=== PATIENT | male | born 1950 | race Caucasian/White ===

== ENCOUNTER 2017-04-08 07:20 | Day surgery (SDC) | payer MEDICARE, OTHER ==
--- NOTE | 2017-04-02 12:48 | HISTORY AND PHYSICAL E ---
History and Physical NAME: PATRICIO HELMS : 1950 AGE: 67Y ADMITTED: 04/08/2017 ROOM: CHIEF COMPLAINT: Colon screening. HISTORY: The patient presented to us in 2011 for colon screening. PAST MEDICAL HISTORY: Coronary artery disease. PAST SURGICAL HISTORY: 1. Back surgery. 2. Colonoscopy back in year 1999. MEDICATIONS: 1. Effient. 2. Metoprolol. 3. Simvastatin. ALLERGIES: Negative. SOCIAL HISTORY: . Does not smoke. Drinks rarely. FAMILY HISTORY: Father had unknown cause and . REVIEW OF SYSTEMS: CARDIAC: Hypertension, coronary artery disease, cardiac cath and stent. ENDOCRINE: Thyroid disorder. GASTROINTESTINAL: Hemorrhoids. Colon screening. HEMATOLOGIC/ONCOLOGIC: Negative. MUSCULOSKELETAL: Back surgery. END OF DICTATION. DICTATING PHYSICIAN: ERIK VALDERRAMA M.D. [id number] PHY#: [id number] ID: [id number] JOB#: [id number] ACCT: [id number] cc:ERIK VALDERRAMA M.D. >
[2017-04-08] MEDS ORDERED: LIDOCAINE 2% JELLY 30 ML TUBE ONE (08:08)
[2017-04-08] MEDS ORDERED: MIDAZOLAM 2 MG/2 ML INJ ONE (08:09)
[2017-04-08] MEDS ORDERED: ONDANSETRON HCL INJ/PF 4 MG/2 ML SDV ONE (08:09)
[2017-04-08] MEDS ORDERED: GLYCOPYRROLATE INJ 0.4 MG/2 ML VIAL ONE (08:09)
[2017-04-08] MEDS ORDERED: NALOXONE HCL INJ/PF 0.4 MG/1 ML SDV ONE (08:09)
[2017-04-08] MEDS ORDERED: FLUMAZENIL INJ 0.5 MG/5 ML VIAL IV ONE (08:10)
[2017-04-08] MEDS ORDERED: GLUCAGON,HUMAN RECOMB 1 MG INJ ONE (08:10)
[2017-04-08] MEDS ORDERED: EPINEPHRINE INJ 1 MG/10 ML DISP.SYRIN ONE (08:10)
[2017-04-08] MEDS: FENTANYL CITRATE INJ/PF 100 MCG/2 ML AMPUL ONE ×2 (08:30→08:37)
[2017-04-08 10:11] VITALS: BP 122/82
--- NOTE | 2017-04-08 13:45 | DISCHARGE SUMMARY E ---
Discharge Summary NAME: PATRICIO HELMS : 1950 AGE: 67Y ADMITTED: 04/08/2017 DISCHARGED: 04/08/2017 SUMMARY: The patient is a 67-year-old male who presented to us regarding colon screening. Today's colon shows benign-looking diminutive rectal polyp and anal narrowing with sigmoid and descending colon diverticulosis. DISCHARGE PLAN: 1. Soft diet. 2. Hold aspirin for 3 days. 3. Awaiting biopsy results. 4. Consideration for follow-up colonoscopy in 3 years. 5. Follow-up office visit in the next few days. DICTATING PHYSICIAN: ERIK VALDERRAMA M.D. [id number] [id number] PHY#: [id number] ID: [id number] JOB#: [id number] ACCT: [id number] cc:DERRICK GARCIA M.D., MAHMOUD M.D. >
--- NOTE | 2017-04-08 13:53 | OPERATIVE REPORT E ---
Operative Report NAME: PATRICIO HELMS : 1950 AGE: 67Y DATE OF SURGERY: 04/08/2017 ROOM: PREOPERATIVE DIAGNOSIS: Colon screening. POSTOPERATIVE DIAGNOSES: 1. Diminutive polyp, rectum, 2 mm, close to the anal verge. 2. Nonspecific anal narrowing. 3. Sigmoid diverticulosis. PROCEDURE: Colonoscopy. SURGEON: ERIK VALDERRAMA M.D. ANESTHESIA: Versed 2 mg and Fentanyl 100 mcg. TISSUE REMOVED OR ALTERED: Rectal biopsy. PROCEDURE: Rectal exam shows anal narrowing, etiology undetermined. Rectum shows scarring and 2-mm rectal polyp, biopsy obtained. Sigmoid and descending colon diverticulosis. Transverse colon normal. There is an area of inking marker from previous colonoscopy. I inspected the area and I did not see any polyps. Ascending colon normal. Cecum normal. Adequate prep. Scope withdrawn cecum, ascending, transverse, descending, sigmoid all the way to the rectum. CONCLUSIONS: Benign-looking diminutive anal polyp and anal narrowing and sigmoid descending colon diverticulosis. PLAN: 1. Soft diet. 2. Hold aspirin 3 days. 3. Consideration of follow-up colonoscopy in 3 years. DICTATING PHYSICIAN: ERIK VALDERRAMA M.D. [id number] PHY#: [id number] ID: [id number] JOB#: [id number] ACCT: [id number] cc:DERRICK GARCIA M.D., MAHMOUD M.D. >
== END 2017-04-08 10:10 | disposition home or self-care (01) ==
LOC: END 07:20
PROVIDERS: ATTEND Specialist
PROC: 0DBP8ZX Excision of Rectum, Via Natural or Artificial Opening Endoscopic, Diagnostic (ICD-10-PCS; principal; 2017-04-08 08:00)
DX: Z12.11 Encounter for screening for malignant neoplasm of colon (principal); K63.5 Polyp of colon; K56.60 Unspecified intestinal obstruction; K57.30 Diverticulosis of large intestine without perforation or abscess without bleeding; I25.10 Atherosclerotic heart disease of native coronary artery without angina pectoris; I10 Essential (primary) hypertension; E07.9 Disorder of thyroid, unspecified; Z79.899 Other long term (current) drug therapy
CPT/HCPCS: 45380; 88305 ×2; J2250; J3010; J1610; J2405; J0171; J2310; J3490

== ENCOUNTER 2018-04-06 07:51 | Day surgery (SDC) | payer MEDICARE, OTHER ==
[2018-03-24 11:56] LABS: INTERNATIONAL RATION (INR) 0.96; PROTHROMBIN TIME 13.3 SEC (11.4-15.4)
[2018-03-24 11:57] LABS: PARTIAL THROMBOPLASTIN TIME 27.5 SEC (23.5-35.8)
[2018-03-24 12:09] LABS: ANION GAP 10 (5-19); BLOOD UREA NITROGEN 8 mg/dL (7-20); CARBON DIOXIDE 29 mmol/L (22-30); CHLORIDE 105 mmol/L (98-107); GLUCOSE 88 mg/dL (75-110); POTASSIUM 4.5 mmol/L (3.6-5.0); SODIUM 143.5 mmol/L (137-145)
[2018-03-24 12:14] LABS: HEMATOCRIT 44.7 % (37.9-51.0); HEMOGLOBIN 15.3 g/dL (13.5-17.0); MEAN CORPUSCULAR HEMOGLOBIN 31.8 pg (27.0-33.4); MEAN CORPUSCULAR HGB CONC 34.1 g/dL (32.0-36.0); MEAN CORPUSCULAR VOLUME 93 fl (80-97); PLATELET COUNT 214 10^3/uL (150-450); RED BLOOD COUNT 4.81 10^6/uL (4.35-5.55); RED CELL DISTRIBUTION WIDTH 13.2 % (11.5-14.0); WHITE BLOOD COUNT 4.4 10^3/uL (4.0-10.5)
--- NOTE | 2018-03-24 22:05 | EKG REPORT ---
SEVERITY:- ABNORMAL ECG - SINUS RHYTHM PROBABLE INFERIOR INFARCT, AGE INDETERMINATE : Confirmed by: Christiano Reece 24-Mar-2018 22:04:55
[~2018-04-06 07:51] MED LIST: CEFAZOLIN 1 GM/D5W RTU 1 GM/50 ML RTUPB IV PRN; LACTATED RINGERS 1000 ML IV PRN; LIDOCAINE 0.5% INJ-PF (5 MG/ML) 50 ML SDV SUBCUT PRN; LIDOCAINE 1%/EPINEPHRINE INJ 20 ML VIAL ONE; SODIUM BICARBONATE 8.4% INJ 50 MEQ/50 ML DISP.SYRIN ONE
[2018-04-06] MEDS ORDERED: LIDOCAINE 2% INJ-PF (20 MG/ML) 10 ML AMPUL ONE (09:06)
[2018-04-06] MEDS ORDERED: FENTANYL CITRATE INJ/PF 100 MCG/2 ML AMPUL ONE (09:06)
[2018-04-06] MEDS ORDERED: MIDAZOLAM 2 MG/2 ML INJ ONE (09:06)
[2018-04-06] MEDS ORDERED: PROPOFOL INJ 200 MG/20 ML VIAL IV ONE ×2 (09:07→10:51)
[2018-04-06] MEDS ORDERED: MEPERIDINE HCL/PF INJ 25 MG/1 ML DISP.SYRIN IV PRN (09:52)
[2018-04-06] MEDS ORDERED: FENTANYL CITRATE INJ/PF 100 MCG/2 ML AMPUL IV PRN ×3 (09:52)
[2018-04-06] MEDS ORDERED: DIPHENHYDRAMINE HCL 50 MG/ML VIAL IV PRN (09:52)
[2018-04-06] MEDS ORDERED: PROMETHAZINE HCL INJ 25 MG/1 ML VIAL IV PRN (09:52)
--- NOTE | 2018-04-06 10:51 | Operative Report ---
Operative Report DATE OF SURGERY: 04/06/18 PREOPERATIVE DIAGNOSIS: Lipoma right scapula area POSTOPERATIVE DIAGNOSIS: Lipoma right scapular area with extension intraseptal subfascial extension with adjacent second component OPERATION: Excision of lipoma which extended into the intramuscular septum subfascial with a second component extending in subcutaneous plane. Closure multilayer including fascia, deep dermal, subcuticular and supporting skin sutures. SURGEON: RICHARD MACK ANESTHESIA: LMAC TISSUE REMOVED OR ALTERED: 2 component lipomatous mass COMPLICATIONS: None ESTIMATED BLOOD LOSS: Minimal PROCEDURE: The patient was brought into the operating room after being marked. The patient was placed in a sloppy lateral position. The patient was then prepped with a Betadine scrub and Betadine solution. A timeout was performed. The area for resection was outlined. Injection of 1% lidocaine with epinephrine and bicarbonate was performed for its anesthetic and hemostatic effects. An incision was then made through the skin into the subcutaneous tissue. Dissection was performed [id number] to encounter the mass. Once the mass was encountered a dissection was performed 360 in order to remove the mass Retraction was used to facilitate exposure. Dissection was performed through the subcutaneous fat and down through the subcutaneous plane with extension that was dissected from the intramuscular septum, subfascial. The dissection was performed in the subcutaneous plane and again subfascial to remove the feeding stalk arising from the septum between the muscles. [id number] the mass was dissected free of the surrounding tissue. Throughout the case hemostasis was achieved with the bipolar and the Bovie. Once the mass was completely dissected it was then removed. There was a second component to the mass which appeared that this was subcutaneous and extended above the deep fascia. It appeared that this was a separate identifiable fatty collection which had a different appearance than the surrounding subcutaneous fat. This was dissected off the fascia and removed. The area was washed with Betadine and sterile water solution. Hemostasis was confirmed. Closure was then performed using 3-0 Vicryl sutures. Because of the size of the mass deeper sutures were placed in order to minimize a deformity. The layers that were dissected were closed [id number] until we reached the deep dermis. 3-0 Vicryl was used for deep dermal sutures. A subcuticular stitch was placed using 3-0 PDS. A central support stitch was placed using 3-0 PDS. The wound was cleaned with Betadine prior to the final closure. Tincture of benzoin and Steri-Strips with a light pressure dressing was applied. Patient was then reversed from anesthesia and taken to the [facility] for recovery. The approximate size of the mass was over 3.2 cm for the main component that extended intraseptal and the second component was approximately 2.2 cm which extended into the subcutaneous tissue with different characteristics than the first lipoma and also different from the regular normal subcutaneous fat.. This dictation was performed with dragon naturally speaking. If there are any inconsistencies or errors please contact the physician. Subjective: No complaints Objective: Vital signs stable afebrile No bleeding Dressing intact Assessment and plan: Doing well. Elevate the operative site. Resume medications. Take antibiotics for 1 day Follow-up Full instructions were given to the patient and family and they understand Portions of this note may be dictated using [employer]revolution voice recognition software. Occasional variations and spelling and vocabulary could be possible and are unintentional. Additionally, there is a chance that some errors may not be caught or corrected. Please notify the offer of any discrepancies noted or if any statements are unclear.
--- NOTE | 2018-04-06 10:53 | Discharge Summary ---
Discharge Summary (SDC) - Discharge Final Diagnosis: Mass of the back right scapular area Date of Surgery: 04/06/18 Condition: Good Treatment or Instructions: Leave the top dressing on for 2 days, then removed. Leave the steri-strip tapes on for 5 days, then removal. Then cleaning wound with peroxide and apply Neosporin/bacitracin 3 times per day. Antibiotics for 1 day, then discontinue. Elevate operative area to decrease swelling. Do not strain, or lift heavy objects. Call for excessive bleeding, increased temperature of 101, uncontrolled pain, or excessive nausea or vomiting. You may reach Dr. Roper through his office at [phone]. In the event of an emergency after hours, then contact Dr. Roper through [facility]. Return to the office for a postop check on . The time will be scheduled by the nursing staff of [facility] prior to discharge. Please give the patient a copy of their labs and EKG so they can bring this to their PMD. Thank you Portions of this note may be dictated using [employer] voice recognition software. Occasional variations and spelling and vocabulary could be possible and are unintentional. Additionally, there is a chance that some errors may not be caught or corrected. Please notify the offer of any discrepancies noted or if any statements are unclear. Referrals: DERRICK GARCIA MD [Primary Care Provider] - Discharge Diet: As Tolerated Report the Following to Your Physician Immediately: Unusual Bleeding - Keep torso elevated. Do not do any excessive activities with the shoulder. Keep pressure on the area.
[2018-04-06 13:18] VITALS: BP 141/90
[2018-04-06] MEDS ORDERED: ONDANSETRON HCL INJ/PF 4 MG/2 ML SDV ONE (16:07)
== END 2018-04-06 12:45 | disposition home or self-care (01) ==
LOC: OROUT 07:51
PROVIDERS: ATTEND Plastic Surgery
DX: D17.21 Benign lipomatous neoplasm of skin and subcutaneous tissue of right arm (principal); M19.90 Unspecified osteoarthritis, unspecified site; K21.9 Gastro-esophageal reflux disease without esophagitis; I10 Essential (primary) hypertension; E03.9 Hypothyroidism, unspecified; I25.2 Old myocardial infarction; Z79.82 Long term (current) use of aspirin; Z79.899 Other long term (current) drug therapy; Z86.718 Personal history of other venous thrombosis and embolism; Z79.01 Long term (current) use of anticoagulants; Z01.818 Encounter for other preprocedural examination
CPT/HCPCS: 93005; 36415; 85027; 85610; 85730; 80048; 88304 ×2; 93010; 23071; J2250; J3010; J3490 ×3; J2405; J2704; 300

== ENCOUNTER 2019-08-02 08:36 | Day surgery (SDC) | payer MEDICARE, OTHER ==
[~2019-08-02 08:36] MED LIST changes: +BUPIVACAINE HCL 0.75% INJ/PF (7.5 MG/1 ML) 10 ML SDV OD PRN; -CEFAZOLIN 1 GM/D5W RTU 1 GM/50 ML RTUPB IV PRN; +CHONDR SU A NA/HYALUR INTRAOC KIT (SURGICARE) ONE; +DORZOLAMIDE HCL 2%/TIMOLOL MALEAT 0.5% OPH SOLN 10 ML OD PRN; +EPINEPHRINE INJ/PF 1 MG/1 ML AMPULE ONE; +KETOROLAC TROMETHAMINE 0.45% 4 DROP/0.4 ML DROPERETTE OD PRN; -LACTATED RINGERS 1000 ML IV PRN; -LIDOCAINE 0.5% INJ-PF (5 MG/ML) 50 ML SDV SUBCUT PRN; +LIDOCAINE 1% INJ-PF (10 MG/ML) 30 ML SDV ONE; -LIDOCAINE 1%/EPINEPHRINE INJ 20 ML VIAL ONE; +LIDOCAINE 4% INJ/PF (40 MG/ML) 5 ML AMPUL OD PRN; -SODIUM BICARBONATE 8.4% INJ 50 MEQ/50 ML DISP.SYRIN ONE
[2019-08-02] MEDS: TROPICAMIDE 1% OPH SOLN 15 ML OD PRN ×3 (09:30→09:55)
[2019-08-02] MEDS: TETRACAINE HCL 0.5% OPH SOLN 4 ML OD PRN ×3 (09:30→10:12)
[2019-08-02] MEDS: BESIFLOXACIN HCL 0.6% OPH SUSP 5 ML BOTTLE OD PRN ×3 (09:30→10:38)
[2019-08-02] MEDS: CYCLOPENTOLATE 0.2%/PHENYLEPHRINE 1% OPH SOLN 2 ML OD PRN ×3 (09:30→09:55)
[2019-08-02] MEDS ORDERED: MIDAZOLAM 2 MG/2 ML INJ ONE ×2 (10:02→10:19)
[2019-08-02] MEDS ORDERED: FENTANYL CITRATE INJ/PF 100 MCG/2 ML AMPUL ONE (10:02)
--- NOTE | 2019-08-02 13:12 | Operative Report ---
Operative Report-[facility] Operative Report: DATE OF SURGERY: 08/02/2019 PREOPERATIVE DIAGNOSIS: CATARACT, RIGHT EYE. POSTOPERATIVE DIAGNOSIS: CATARACT,RIGHT EYE. PROCEDURE PERFORMED: PHACOEMULSIFICATION WITH TORIC POSTERIOR CHAMBER INTRAOCULAR LENS, RIGHT EYE. Intraocular Lens Model : MX 60 T200 22.5 Total Phaco Time: 3.88 CDE SURGEON: ANTWON ALARCON MD ANESTHESIA: TOPICAL WITH MAC. INDICATIONS FOR SURGERY: Difficulty with night driving PROCEDURE: The patient was brought to the Operating Room and placed in a seated position. a lid speculum was placed in the eye. the 0.180, and 270 degree axis of the cornea was marked with a toric marker. the patien was place in a reclining position. Following tetracaine drops, topical anesthesia was administered. This consisted of instrument wipe pledgets soaked in a solution of 4% Xylocaine mixed with 0.75% Marcaine in a 1:2 ratio. A 2 x 1 cm pledget was placed in the superior fornix. A 1 x 1 cm pledget was placed in the inferior fornix. The eye was patched shut for 5 minutes. The patch was removed. The eye was sterilely prepped and draped in the usual manner. Lid speculum was placed in the eye. The pledgets were removed. 4-0 black silk sutures were placed around the superior and the inferior rectus muscles to be used as traction. A conjunctival peritomy was made at the 10 o'clock position. Hemostasis was obtained with bipolar cautery. A posterior limbal groove was created using a crescent knife and dissected anteriorly towards the cornea. A sharp point blade was used to create a paracentesis site at the 2 o'clock position. 0.2 cc non preserved Lidocaine was injected into the anterior chamber. A 2.4 mm keratome was used to enter the anterior chamber through the groove. Viscoelastic was injected into the anteriorchamber. An anterior capsulotomy was performed using Utrata forceps in acapsulorrhexis fashion. Hydrodissection and hydrodelineation were performed. Phacoemulsification was performed in [id number]-[id number]-[id number] technique. Following this, the I/A unit was used to remove residual cortex. Viscoelastic was injected into the capsular bag. The Intraocular lens was placed in the capsular bag. The 170 degree axis of the eye was marked using a toric marker and the previously marked sites as reference. The lens was centered at this axis. The I/A unit was used to remove residual viscoelastic. The wound was seen to be watertight under high and low pressure, and no sutures were placed. The intraocular lens was well centered. The pressure was adjusted in the eye to normal pressure. The 4-0 black silk sutures and lid speculum were removed. The eye was shielded after Besivance and Cosopt drops were placed. The patient tolerated the procedure well and was sent to the Recovery Room in good condition.
== END 2019-08-02 11:18 | disposition home or self-care (01) ==
LOC: SC 08:36
PROVIDERS: ATTEND Ophthalmology
DX: H25.811 Combined forms of age-related cataract, right eye (principal); I10 Essential (primary) hypertension; E03.9 Hypothyroidism, unspecified; K21.9 Gastro-esophageal reflux disease without esophagitis; Z87.891 Personal history of nicotine dependence; Z79.899 Other long term (current) drug therapy
CPT/HCPCS: 66984; V2787; J2250; J3490 ×5; A9270; J0171; J3010; 142

== ENCOUNTER 2019-08-23 09:25 | Day surgery (SDC) | payer MEDICARE, OTHER ==
[~2019-08-23 09:25] MED LIST changes: -BUPIVACAINE HCL 0.75% INJ/PF (7.5 MG/1 ML) 10 ML SDV OD PRN; +BUPIVACAINE HCL 0.75% INJ/PF (7.5 MG/1 ML) 10 ML SDV OS PRN; -DORZOLAMIDE HCL 2%/TIMOLOL MALEAT 0.5% OPH SOLN 10 ML OD PRN; +FENTANYL CITRATE INJ/PF 100 MCG/2 ML AMPUL ONE; -KETOROLAC TROMETHAMINE 0.45% 4 DROP/0.4 ML DROPERETTE OD PRN; +KETOROLAC TROMETHAMINE 0.45% 4 DROP/0.4 ML DROPERETTE OS PRN; -LIDOCAINE 4% INJ/PF (40 MG/ML) 5 ML AMPUL OD PRN; +LIDOCAINE 4% INJ/PF (40 MG/ML) 5 ML AMPUL OS PRN; +MIDAZOLAM 2 MG/2 ML INJ ONE; +ONDANSETRON HCL INJ/PF 4 MG/2 ML SDV ONE
[2019-08-23] MEDS: TROPICAMIDE 1% OPH SOLN 15 ML OS PRN ×3 (10:10→10:30)
[2019-08-23] MEDS: BESIFLOXACIN HCL 0.6% OPH SUSP 5 ML BOTTLE OS PRN ×4 (10:10→11:25)
[2019-08-23] MEDS: CYCLOPENTOLATE 0.2%/PHENYLEPHRINE 1% OPH SOLN 2 ML OS PRN ×3 (10:10→10:30)
[2019-08-23] MEDS: TETRACAINE HCL 0.5% OPH SOLN 4 ML OS PRN ×3 (10:10→10:58)
[2019-08-23] MEDS: DORZOLAMIDE HCL 2%/TIMOLOL MALEAT 0.5% OPH SOLN 10 ML OS PRN ×2 (11:25)
--- NOTE | 2019-08-23 13:07 | Operative Report ---
Operative Report-[facility] Operative Report: DATE OF SURGERY: 08/23/2019 PREOPERATIVE DIAGNOSIS: CATARACT, LEFT EYE. POSTOPERATIVE DIAGNOSIS: CATARACT, LEFT EYE. PROCEDURE PERFORMED: PHACOEMULSIFICATION WITH POSTERIOR CHAMBER INTRAOCULAR LENS, LEFT EYE. Intraocular Lens Model : MX60E 22.0 Total Phaco Time: 10.01 CDE SURGEON: ANTWON ALARCON MD ANESTHESIA: TOPICAL WITH MAC. INDICATIONS FOR SURGERY: Difficultly driving at night PROCEDURE: The patient was brought to the Operating Room and placed on the operative table. Following tetracaine drops, topical anesthesia was administered. This consisted of instrument wipe pledgets soaked in a solution of 4% Xylocaine mixed with 0.75% Marcaine in a 1:2 ratio. A 2 x 1 cm pledget was placed in the superior fornix. A 1 x 1 cm pledget was placed in the inferior fornix. The eye was patched shut for 5 minutes. The patch was removed. The eye was sterilely prepped and draped in the usual manner. Lid speculum was placed in the eye. The pledgets were removed. 4-0 black silk sutures were placed around the superior and the inferior rectus muscles to be used as traction. A conjunctival peritomy was made at the 1o'clock position. Hemostasis was obtained with bipolar cautery. A posterior limbal groove was created using a crescent knife and dissected anteriorly towards the cornea. A sharp point blade was used to create a paracentesis site at the 5 o'clock position. 0.2 cc non preserved Lidocaine was injected into the anterior chamber. A 2.4 mm keratome was used to enter the anterior chamber through the groove. Viscoelastic was injected into the anterior chamber. An anterior capsulotomy was performed using Utrata forceps in a capsulorrhexis fashion. Hydrodissection and hydrodelineation were performed. Phacoemulsification was performed in [id number]-[id number] technique. Following this, the I/A unit was used to remove residual cortex. Viscoelastic was injected into the capsular bag. The Intraocular lens was placed in the capsular bag. The I/A unit was used to remove residual viscoelastic. The wound was seen to be watertight under high and low pressure, and no sutures were placed. The intraocular lens was well centered. The pressure was adjusted in the eye to normal pressure. The 4-0 black silk sutures and lid speculum were removed. The eye was shielded after Besivance and Cosopt drops were placed. The patient tolerated the procedure well and was sent to the Recovery Room in good condition.
== END 2019-08-23 12:06 | disposition home or self-care (01) ==
LOC: SC 09:25
PROVIDERS: ATTEND Ophthalmology
DX: H25.812 Combined forms of age-related cataract, left eye (principal); Z96.1 Presence of intraocular lens; I10 Essential (primary) hypertension; Z79.899 Other long term (current) drug therapy; E07.9 Disorder of thyroid, unspecified
CPT/HCPCS: 66984; V2632; J2250; J3490 ×5; A9270; J0171; J3010; J2405; 142